=== PATIENT | female | born 1985 | race African-American/Black ===

== ENCOUNTER 2016-09-28 06:33 | Emergency (ER) | payer SELFPAY ==
[~2016-09-28] VITALS: Ht 160 cm; Wt 61.0 kg
[~2016-09-28 06:33] MED LIST: AMOX500C PO
[2016-09-28 06:34] VITALS: BP 132/72; PULSE 89; RESP 16; TEMP 98.2; O2SAT 99
--- NOTE | 2016-09-28 07:46 | PD ---
HPI Chief Complaint: ENT Complaint Time Seen by Provider: 07:46 Travel History International Travel<30 days: No Contact w/Intl Traveler<30days: No Traveled to known affect area: No History of Present Illness HPI 31-year-old Afro[place] female presents the emergency department with a four- day history of upper respiratory symptoms including headache, sore throat, and cough. She denies specific fever but has had chills. Patient denies ear pain or productive cough. Patient denies nausea, vomiting, or diarrhea. She has no known drug allergies. PFSH Past Medical History Medical History: Denies Significant Hx Diabetes: Yes (DURING ) Patient Takes Glucophage: No Tetanus Vaccination: < 5 Years ?: Not LMP: 3 WEKKS AGO Past Surgical History Surgical History: No Previous Surgery Social History Alcohol Use: No Tobacco Use: No Substance Use: No Allergies-Medications (Allergen,Severity, Reaction): Coded Allergies: No Known Allergies (Verified , 09/28/16) Reported Meds & Prescriptions Reported Meds & Active Scripts Active Amoxicillin 875 Mg Tab 875 Mg PO BID Amoxicillin 500 Mg Cap 500 Mg PO TID Review of Systems Except as stated in HPI: all other systems reviewed are Neg General / Constitutional: Positive: Chills, No: Fever Eyes: No: Visual changes HENT: Positive: Sore Throat, Rhinitis, Rhinorrhea, Congestion, No: Headaches, Neck Stiffness, Neck Pain, Ear Discharge, Earache Cardiovascular: No: Chest Pain or Discomfort Respiratory: Positive: Cough, No: Shortness of Breath, Wheezing, Sneezing Gastrointestinal: No: Nausea, Vomiting, Diarrhea, Abdominal Pain Genitourinary: No: Dysuria Musculoskeletal: No: Pain Skin: No Rash Neurologic: No: Weakness Psychiatric: No: Depression Endocrine: No: Polydipsia Hematologic/Lymphatic: No: Easy Bruising Physical Exam Narrative GENERAL: Patient appears in no acute distress. SKIN: Warm and dry. Normal color. Normal turgor. HEAD: Atraumatic. Normocephalic. EYES: Pupils equal and round. No scleral icterus. No injection or drainage. ENT: No nasal bleeding or discharge. Mucous membranes pink and moist. Posterior pharynx is erythematous with moderate swelling without exudate. There is no postnasal drip. There is no sinus tenderness. TMs are clear bilaterally. NECK: Trachea midline. Supple nontender without significant lymphadenopathy. CARDIOVASCULAR: Regular rate and rhythm. RESPIRATORY: No accessory muscle use. Clear to auscultation. Breath sounds equal bilaterally. MUSCULOSKELETAL: Extremities without clubbing, cyanosis, or edema. No obvious deformities. NEUROLOGICAL: Awake and alert. No obvious cranial nerve deficits. Motor grossly within normal limits. Five out of 5 muscle strength in the arms and legs. Normal speech. PSYCHIATRIC: Appropriate mood and affect; insight and judgment normal. Data Data Last Documented VS Vital Signs Date Time Temp Pulse Resp B/P Pulse Ox O2 Delivery O2 Flow Rate FiO2 09/28/16 06:34 98.2 89 16 132/72 99 Room Air MDM Medical Decision Making Medical Screen Exam Complete: Yes Emergency Medical Condition: Yes Differential Diagnosis Upper respiratory infection. Sinusitis. Pharyngitis. Narrative Course Patient is medically stable at time of exam. Patient is treated with amoxicillin 875 twice a day 10 days. Patient is to use Tylenol and ibuprofen as needed as well as ice chips and salt water gargles for pain control. Patient is to follow with primary care physician if symptoms do not improve or worsen. Diagnosis Primary Impression: Pharyngitis Qualified Code: J02.9 - Pharyngitis, unspecified etiology Referrals: [facility] Patient Instructions: General Instructions Additional Instructions: Patient is treated with amoxicillin 875 twice a day 10 days. Patient is to use Tylenol and ibuprofen as needed as well as ice chips and salt water gargles for pain control. Patient is to follow with primary care physician if symptoms do not improve or worsen. Med/Other Pt SpecificInfo: Prescription(s) given Scripts Amoxicillin 875 Mg [id number] Mg PO BID #20 TAB Prov:Elzbieta Hector DO 09/28/16 Disposition: 01 DISCHARGE HOME Condition: Stable Cesar Douglas Sep 28, 2016 07:46
[2016-09-28] MEDS ORDERED: AMOX875T PO (07:53)
== END 2016-09-28 08:33 | disposition home or self-care (01) ==
LOC: NEPB 06:33
DX: J02.9 Acute pharyngitis, unspecified (principal); R05 Cough; R51 Headache
CPT/HCPCS: 99283

== ENCOUNTER 2017-12-02 08:21 | Emergency (ER) | payer SELFPAY ==
[~2017-12-02] VITALS: Ht 162.6 cm; Wt 69.9 kg
[~2017-12-02 08:21] MED LIST changes: +AMOX875T PO
[2017-12-02 08:54] VITALS: BP 124/76; PULSE 83; RESP 16; TEMP 98.2; O2SAT 100
--- NOTE | 2017-12-02 09:11 | PD ---
HPI Chief Complaint: Fever Time Seen by Provider: 09:02 Travel History International Travel<30 days: No Contact w/Intl Traveler<30days: No Traveled to known affect area: No History of Present Illness HPI 32 year old female presents to the emergency department with a chief complaint of "I feel hot on the inside". Patient reports subjective fever since Sunday. She has not checked her temperature. She is afebrile and has not taken anything for fever at home. She has no medical problems and takes no prescribed medications. She does not think she is , but is not sure. She denies urinary symptoms. No cough or congestion. No chest pain shortness breath. Abdominal pain. No nausea, vomiting, diarrhea. She has no pain at this time. Mild severity. PFSH Past Medical History Medical History: Denies Significant Hx Diabetes: Yes (DURING ) ?: Unknown LMP: 3 weeks ago Past Surgical History Surgical History: No Previous Surgery Social History Alcohol Use: No Tobacco Use: No Substance Use: No Allergies-Medications (Allergen,Severity, Reaction): Coded Allergies: No Known Allergies (Verified , 09/28/16) Reported Meds & Prescriptions Reported Meds & Active Scripts Active Review of Systems Except as stated in HPI: all other systems reviewed are Neg Physical Exam Narrative GENERAL: Well-nourished, well-developed female patient, ambulatory. Afebrile. Vital signs stable. SKIN: Focused skin assessment warm/dry. No skin rashes noted. HEAD: Normocephalic. Atraumatic ENT: Mucosa pink and moist. No erythema or exudates. No uvular edema. No uvular , palatal, or tonsillar deviation. Airway patent. Nasal turbinates appear normal without nasal blood, purulent drainage or septal hematoma. Bilateral tympanic membranes clear without erythema or perforation. EYES: No scleral icterus. No injection or drainage. NECK: Supple, trachea midline. No JVD or lymphadenopathy. CARDIOVASCULAR: Regular rate and rhythm without murmurs, gallops, or rubs. RESPIRATORY: Breath sounds equal bilaterally. No accessory muscle use. Lung sounds are clear to auscultation. MUSCULOSKELETAL: No cyanosis, or edema. BACK: Nontender without obvious deformity. No CVA tenderness. Data Data Last Documented VS Vital Signs Date Time Temp Pulse Resp B/P (MAP) Pulse Ox O2 Delivery O2 Flow Rate FiO2 12/02/17 08:54 98.2 83 16 124/76 (92) 100 Orders Orders Ed Urine Pregnancytest Poc (12/02/17 09:06) MDM Medical Decision Making Medical Screen Exam Complete: Yes Emergency Medical Condition: Yes Medical Record Reviewed: Yes Differential Diagnosis Viral syndrome versus pharyngitis versus otitis media versus URI Narrative Course 32-year-old female presents to the emergency department with a chief complaint of "I feel hot on the inside". Physical exam is unremarkable. She is afebrile vital signs are stable. Urine test was negative. Patient is instructed to take Tylenol or Motrin [id number], rest, follow-up with her primary care physician. The patient was discharged in stable condition with instructions, including return instructions and follow up instructions. Diagnosis Primary Impression: Viral syndrome Referrals: Primary Care Physician call for appointment Patient Instructions: General Instructions, Viral Syndrome (ED) Additional Instructions: [id number] Tylenol every 4 hours as needed, [id number] ibuprofen every 6-8 hours as needed. Rest. Drink plenty of fluids. Follow-up with a primary care physician. Return to the emergency department for any acute worsening of symptoms. Med/Other Pt SpecificInfo: No Change to Meds Disposition: 01 DISCHARGE HOME Condition: Stable Daphney Jewell PATRICIA December 02, 2017 09:10
== END 2017-12-02 09:26 | disposition home or self-care (01) ==
LOC: PHEFT 08:21
DX: B34.9 Viral infection, unspecified (principal)
CPT/HCPCS: 84703; 99282